=== PATIENT | female | born 1995 | race Two or more races ===

== ENCOUNTER 2018-03-21 05:03 | Inpatient (IN) | payer OTHER ==
[~2018-03-21] VITALS: Ht 160 cm; Wt 49.9 kg
[2018-03-21] MEDS ORDERED: PRENATAL DHA200 MG PO (08:23)
[2018-03-21] MEDS ORDERED: FOLIC ACID0.4 MG PO (08:24)
== END 2018-03-21 15:31 | disposition home or self-care (01) | DRG 780 ==
LOC: LDR 05:03 → EDBD 05:03 → OB/GYN 05:03 → LDR 07:59
PROC: 4A1HXCZ Monitoring of Products of Conception, Cardiac Rate, External Approach (ICD-10-PCS; principal; 2018-03-21)
DX: O47.03 False labor before 37 completed weeks of gestation, third trimester (principal)

== ENCOUNTER 2018-03-23 08:29 | Inpatient (IN) | payer OTHER ==
[~2018-03-23] VITALS: Ht 160 cm; Wt 52.6 kg
[~2018-03-23 08:29] MED LIST: FOLIC ACID0.4 MG PO; PRENATAL DHA200 MG PO
[2018-03-23] MEDS ORDERED: IRON18 MG PO (09:40)
== END 2018-03-25 12:16 | DRG 775 ==
LOC: OBS/DEL 08:29 → LDR 11:55 → OB/GYN 03-24 15:08
PROC: 10E0XZZ Delivery of Products of Conception, External Approach (ICD-10-PCS; principal; 2018-03-23)
PROC: 0W8NXZZ Division of Female Perineum, External Approach (ICD-10-PCS; 2018-03-23)
PROC: 3E033VJ Introduction of Other Hormone into Peripheral Vein, Percutaneous Approach (ICD-10-PCS; 2018-03-23)
PROC: BY4FZZZ Ultrasonography of Third Trimester, Single Fetus (ICD-10-PCS; 2018-03-23)
PROC: 4A033R1 Measurement of Arterial Saturation, Peripheral, Percutaneous Approach (ICD-10-PCS; 2018-03-23)
PROC: 4A1HXCZ Monitoring of Products of Conception, Cardiac Rate, External Approach (ICD-10-PCS; 2018-03-23)
DX: O42.013 Preterm premature rupture of membranes, onset of labor within 24 hours of rupture, third trimester (principal); O13.4 Gestational [pregnancy-induced] hypertension without significant proteinuria, complicating childbirth; Z3A.36 36 weeks gestation of pregnancy; Z37.0 Single live birth

== ENCOUNTER 2022-12-04 09:28 | Outpatient (CLI) | payer OTHER ==
[~2022-12-04 09:28] MED LIST changes: +IRON18 MG PO
== END 2022-12-04 09:38 | disposition home or self-care (01) ==
LOC: SONOGRAMA 09:28
DX: N93.8 Other specified abnormal uterine and vaginal bleeding (principal)